=== PATIENT | female | born 1995 | race Caucasian/White ===

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

== ENCOUNTER 2017-04-04 20:33 | Emergency (ER) | payer MEDICAID ==
[2017-04-04 21:26] LABS: BASOPHILS 0.2 % (0-2); EOSINOPHILS 0.8 % (0-7); HEMATOCRIT 40.2 % (36.0-48.0); HEMOGLOBIN 13.3 g/dL (12-16); IMMATURE GRANULOCYTES 0.3 % (0-5); LYMPHOCYTES 25.2 % (15-50); MCH 26.5 pg (26.0-34.0); MCHC 33.1 g/dL (31.0-37.0); MCV 80.2 fL (80.0-100.0); MEAN PLATELET VOLUME 10.5 fL (7.4-10.4); MONOCYTES 5.3 % (2-11); NEUTROPHILS 68.2 % (40-80); PLATELET COUNT 241 10x3/uL (130-400); RBC 5.01 10x6/uL (4.00-5.40); RDW 13.4 % (11.5-14.5); WBC 9.9 10x3/uL (4.8-10.8)
[2017-04-04 21:39] LABS: HCG SERUM NEGATIVE (NEGATIVE)
[2017-04-04 22:04] LABS: APPEARANCE CLEAR (CLEAR); BILIRUBIN NEGATIVE (NEGATIVE); COLOR YELLOW (YELLOW); GLUCOSE NEGATIVE (NEGATIVE); KETONE MODERATE mg/dL (NEGATIVE); NITRITE NEGATIVE (NEGATIVE); PROTEIN NEGATIVE (NEGATIVE); UROBILINOGEN NORMAL (NORMAL)
[2017-04-04 22:05] LABS: EPITHELIAL CELLS 0-5 /hpf (0-5); RED CELLS - URINE 0-5 /hpf (0-5); WHITE CELLS - URINE 0-5 /hpf (0-5)
[2017-04-04 22:06] LABS: BACTERIA FEW /hpf (NONE SEEN)
== END 2017-04-04 22:52 | disposition home or self-care (01) ==
LOC: D.ER 20:33
PROVIDERS: Emergency Medicine; Nurse Practitioner Family
DX: N94.6 Dysmenorrhea, unspecified (principal); R10.2 Pelvic and perineal pain

== ENCOUNTER 2018-07-02 08:14 | Emergency (ER) | payer MEDICAID ==
[~2018-07-02] VITALS: Ht 154.9 cm; Wt 42.3 kg
[2018-07-02 08:18] VITALS: Ht 154.9 cm; Wt 42.3 kg
[2018-07-02 08:46] LABS: BASOPHILS 0.3 % (0-2); EOSINOPHILS 0.8 % (0-7); HEMATOCRIT 41.8 % (36.0-48.0); HEMOGLOBIN 13.9 g/dL (12-16); IMMATURE GRANULOCYTES 0.4 % (0-5); MCH 26.6 pg (26.0-34.0); MCHC 33.3 g/dL (31.0-37.0); MCV 79.9 fL (80.0-100.0); MEAN PLATELET VOLUME 11.3 fL (7.4-10.4); MONOCYTES 6.5 % (2-11); PLATELET COUNT 214 10x3/uL (130-400); RBC 5.23 10x6/uL (4.00-5.40); RDW 12.8 % (11.5-14.5)
[2018-07-02 08:50] LABS: APPEARANCE CLEAR (CLEAR); BILIRUBIN NEGATIVE (NEGATIVE); COLOR YELLOW (YELLOW); GLUCOSE NEGATIVE (NEGATIVE); KETONE LARGE mg/dL (NEGATIVE); NITRITE NEGATIVE (NEGATIVE); PROTEIN NEGATIVE (NEGATIVE); UROBILINOGEN NORMAL (NORMAL)
[2018-07-02] MEDS ORDERED: PHENERGAN25 M1 PO (09:16)
[2018-07-02 09:29] LABS: CALC OSMOLALITY 272 mosm/kg (275-300); CALCIUM 9.3 mg/dL (8.5-10.1); CARBON DIOXIDE 19.6 mmol/L (21.0-32.0); CHLORIDE - SERUM 101 mmol/L (98-107); CREATININE - SERUM 0.6 mg/dL (0.6-1.3); HCG - QUANTITATIVE (MATERNAL) 94753 mIU/mL; POTASSIUM - SERUM 3.1 mmol/L (3.5-5.1); SODIUM 138 mmol/L (136-145); UREA NITROGEN 9 mg/dL (7-18); eGFR NON AFRICAN AMERICAN > 90 mL/min (90-120)
[2018-07-02 09:31] LABS: GLUCOSE 68 mg/dL (74-106)
[2018-07-02 10:06] VITALS: BP 110/58
== END 2018-07-02 10:04 | disposition home or self-care (01) ==
LOC: D.ER 08:14
PROVIDERS: Emergency Medicine
DX: O21.0 Mild hyperemesis gravidarum (principal); Z3A.10 10 weeks gestation of pregnancy

== ENCOUNTER → 2019-01-25 19:50 | Outpatient (CLI) | payer MEDICAID ==
[2018-07-02 08:18] VITALS: BMI 17.6
[~2019-01-25 19:50] MED LIST: PHENERGAN25 M1 PO; PRENAVITE1 TAB PO
[2019-01-25 20:54] LABS: APPEARANCE CLEAR (CLEAR); COLOR YELLOW (YELLOW); NITRITE NEGATIVE (NEGATIVE); PROTEIN NEGATIVE (NEGATIVE)
[2019-01-25 20:55] LABS: BILIRUBIN NEGATIVE (NEGATIVE); GLUCOSE 250 mg/dL (NEGATIVE); KETONE NEGATIVE (NEGATIVE); UROBILINOGEN NORMAL (NORMAL)
[2019-01-25 20:57] LABS: RED CELLS - URINE 0-5 /hpf (0-5); UDS - AMPHET NEGATIVE QUAL (NEGATIVE); UDS - BARB NEGATIVE QUAL (NEGATIVE); UDS - BENZO NEGATIVE QUAL (NEGATIVE); UDS - COCAINE NEGATIVE QUAL (NEGATIVE); UDS - OPIATE NEGATIVE QUAL (NEGATIVE); UDS - PCP NEGATIVE QUAL (NEGATIVE); UDS - THC NEGATIVE QUAL (NEGATIVE)
[2019-01-25 20:58] LABS: BACTERIA FEW /hpf (NEGATIVE); EPITHELIAL CELLS 0-5 /hpf (0-5)
--- NOTE | 2019-01-25 21:18 | NUR ---
DR FOX NOTIFIED AND REVIEWED PT;s BEHAVIOR AND ASSESSMENT RESULTS. PT IS A LOW RSK PER DR FOX. DR FOX STATED TO GIVE RESOURCESTO PT AT TIME OF DISCHARGE . NO FURTHER ORDERS AT THIS TIME. RESOURCES REVIEWED WITH PT AND SHE VERBALIZED UNDERSTANDING.
[2019-02-22 18:40] VITALS: BMI 19.3
== END | disposition home or self-care (01) ==
LOC: D.LDO 19:50
PROVIDERS: ATTEND Obstetrics & Gynecology
DX: O47.9 False labor, unspecified (principal)

== ENCOUNTER 2019-02-09 12:22 | Inpatient (IN) | payer MEDICAID ==
[~2019-02-09] VITALS: Ht 154.9 cm; Wt 52.6 kg
[2019-02-09 12:39] VITALS: BP 122/58; Ht 154.9 cm; Wt 52.6 kg
[2019-02-09 13:00] LABS: APPEARANCE CLEAR (CLEAR); BILIRUBIN NEGATIVE (NEGATIVE); COLOR YELLOW (YELLOW); GLUCOSE NEGATIVE (NEGATIVE); KETONE NEGATIVE (NEGATIVE); NITRITE NEGATIVE (NEGATIVE); PROTEIN NEGATIVE (NEGATIVE); UROBILINOGEN NORMAL (NORMAL)
[2019-02-09 13:11] LABS: UDS - AMPHET NEGATIVE QUAL (NEGATIVE); UDS - BARB NEGATIVE QUAL (NEGATIVE); UDS - BENZO NEGATIVE QUAL (NEGATIVE); UDS - COCAINE NEGATIVE QUAL (NEGATIVE); UDS - OPIATE NEGATIVE QUAL (NEGATIVE); UDS - PCP NEGATIVE QUAL (NEGATIVE); UDS - THC NEGATIVE QUAL (NEGATIVE)
--- NOTE | 2019-02-09 13:13 | NUR ---
DR FOX NOTIFIED AND REVIEWED PATIENT'S BEHAVIOR AND ASSESSMENT RESULTS. PT. IS A LOW RISK PER DR. FOX. DR. FOX STATED TO GIVE RESOURCES TO PT. AT TIME OF DISCHARGE. NO FURTHER ORDERS AT THIS TIME. RESOURCES REVIEWED WITH PT. AND SHE VERBALIZED UNDERSTANDING. PT. VEHEMENTLY DENIES ANY THOUGHTS OF SUICIDE OR SELF-HARM AND CAN STATE MANY REASONS FOR LIVING.
[2019-02-09 15:33] LABS: HEMATOCRIT 32.2 % (36.0-48.0); HEMOGLOBIN 10.1 g/dL (12-16); MCH 25.8 pg (26.0-34.0); MCHC 31.4 g/dL (31.0-37.0); MCV 82.4 fL (80.0-100.0); MEAN PLATELET VOLUME 11.8 fL (7.4-10.4); RBC 3.91 10x6/uL (4.00-5.40); RDW 14.8 % (11.5-14.5); WBC 10.3 10x3/uL (4.8-10.8)
--- NOTE | 2019-02-09 22:17 | NUR ---
BONDING WITH INFANT. FOB AND OLDER SIBLINGS SHOWN TO NEW ROOM. PT DENIES PAIN AND NEEDS AT THIS TIME. INSTRUCTED TO NOTIFY RN WHEN READY FOR V/S CHECK WHEN OLDER SIBLINGS LEAVE AND BEFORE GETTING OOB TO AMBULATE, VERBALIZES UNDERSTANDING. BED IN LOW POSITION WITH SRUP X2. CALL LIGHT AND PHONE WITHIN REACH.
[2019-02-10 00:12] VITALS: BP 118/72
--- NOTE | 2019-02-10 00:12 | NUR ---
BF AT THIS TIME. VSS. SHIFT ASSESSMENT COMPLETED PER FLOWSHEET. ICE WATER PROVIDED. PT ALSO EATING MEAL BROUGHT TO HER BY FAMILY. DENIES NEEDS. REINFORCED CALLING STAFF FOR ASSISTANCE OOB WITH NEXT VOID. VERBALIZES UNDERSTANDING. BED IN LOW POSITION WITH SRUPX2. CALL LIGHT AND PHONE WITHIN REACH. WILL CONTINUE TO MONITOR.
--- NOTE | 2019-02-10 02:38 | NUR ---
AROUSES TO VOICE. REPORTS THAT SHE HAS NOT VOIDED AND DOES NOT FEEL THE URGE TO VOID. EDUCATED ON IMPORTANCE OF VOIDING FREQUENTLY, VERBALIZES UNDERSTANDING. UP TO BR WITH STANDBY ASSIST, STEADY GAIT NOTED. SMALL AMT RUBRA LOCHIA TO PERIPAD, NO CLOTS. VOIDED 1200 MLS CLEAR LIGHT YELLOW URINE IN HAT. INSTRUCTED ON PERICARE USING PERIBOTTLE WITH WARM AND MILD ANTIBACTERIAL SOAP WITH EACH BM/VOID, VERBALIZES AND DEMONSTRATES UNDERSTANDING. FUNDUS FIRM, MIDLINE AND U2, SCANT RUBRA LOCHIA FOLLOWING VOID, NO CLOTS NOTED. BED IN LOW POSITION WITH SRUPX2. CALL LIGHT AND PHONE WITHIN REACH. WILL CONTINUE TO MONITOR. RESTING QUIETLY IN OPEN CRIB AT BEDSIDE. SIGNIFICANT OTHER RESTING ON COUCH AT BEDSIDE.
--- NOTE | 2019-02-10 04:22 | NUR ---
RESTING ON LT SIDE WITH EYES CLOSED. RESP REGULAR AND UNLABORED, NO S/S OF DISTRESS NOTED. SIGNIFICANT OTHER RESTING ON COUCH AT BEDSIDE. INFANT RESTING IN OPEN CRIB AT BEDSIDE. BED IN LOW POSITION WITH SRUPX2. CALL LIGHT AND PHONE WITHIN REACH. WILL CONTINUE TO MONITOR.
[2019-02-10 05:23] LABS: BASOPHILS 0.2 % (0-2); EOSINOPHILS 1.2 % (0-7); HEMATOCRIT 29.5 % (36.0-48.0); HEMOGLOBIN 9.1 g/dL (12-16); IMMATURE GRANULOCYTES 0.5 % (0-5); LYMPHOCYTES 21.1 % (15-50); MCH 25.1 pg (26.0-34.0); MCHC 30.8 g/dL (31.0-37.0); MCV 81.5 fL (80.0-100.0); MEAN PLATELET VOLUME 12.4 fL (7.4-10.4); MONOCYTES 8.3 % (2-11); NEUTROPHILS 68.7 % (40-80); PLATELET COUNT 126 10x3/uL (130-400); RBC 3.62 10x6/uL (4.00-5.40); RDW 14.6 % (11.5-14.5); WBC 9.1 10x3/uL (4.8-10.8)
--- NOTE | 2019-02-10 07:20 | NUR ---
UPON ENTERING ROOM, PT IS RESTING, BEDSIDE SHIFT REPORT DONE, INFORMED THAT I WILL RETURN SHORTLY TO DO ASSESSMENT, NO NEEDS VOICED, BED IN LOW POSIITON, SIDE RAILS X 2, CALL LIGHT IN REACH, INFANT IN OPEN CRIB CART AND FOB AT BEDSIDE
[2019-02-10 08:00] VITALS: BP 116/71
--- NOTE | 2019-02-10 08:00 | NUR ---
PT RESTING WITH EYES CLOSED, AROUSES TO SOFT VERBAL STIMULATION, VS OBTAINED, FF, ML, 1/U AND SLIGHTLY DEVIATED TO THE RIGHT, PT INST TO GET UP TO BR TO VOID, PT UP TO BR, GAIT STEADY, VOIDED LARGE AMOUNT WITH NO DIFFICULTY, PT REPORTS LITE BLEEDING WITH NO CLOTS, USING LENORA CARE INST, GOWN CHANGED, PT BACK TO BED, FF, ML, U/1, PT REPORTS FLATUS, NO BM, PT RATES CRAMPING 2/10, INFORMED PT THAT I WILL CHECK ON PAIN MED, PT DENIES NEED FOR PAIN MED AT THIS TIME, INFANT IN OPEN CRIB CART AT BEDSIDE AND FOB TO [place]
--- NOTE | 2019-02-10 09:25 | NUR ---
PT SITTING UP IN BED HOLDING , DENIES NEEDS OR NEED FOR MOTRIN, BED IN LOW POSITION, SIDE RAILS X 2, CALL LIGHT IN REACH
--- NOTE | 2019-02-10 10:29 | NUR ---
PT RESTING IN BED, HOLDING , DENIES NEEDS OR PAIN AT THIS TIME, FOB ASLEEP ON COUCH
[2019-02-10 11:56] VITALS: BP 107/71
--- NOTE | 2019-02-10 11:56 | NUR ---
PT SITTING UP IN BED, FOB HOLDING INFANT AT THIS TIME, NSY NURSE IN ROOM TALKING TO PT AND FOB, VS OBTAINED, PT C/O CRAMPING, PT REQUESTED AND ADM MOTRIN PER MD ORDERS, SEE EMAR, PT DENIES FURTHER NEEDS
--- NOTE | 2019-02-10 13:10 | NUR ---
SHIFT REPORT TO DAY SHIFT
--- NOTE | 2019-02-10 13:13 | NUR ---
PT RESTING IN BED, LOOKING AT CELL PHONE, DENIES NEEDS OR PAIN, INFANT IN OPEN CRIB CART AT BEDSIDE
--- NOTE | 2019-02-10 13:23 | NUR ---
PT SITTING UP IN BED. CARING FOR INFANT. DENIES C/O OR NEEDS.
--- NOTE | 2019-02-10 15:32 | NUR ---
THIS RN TO ROOM FOR PT CHECK. PT RESTING IN BED ON LEFT SIDE, EYES CLOSED, RESP EVEN AND UNLABORED. PT LEFT UNDISTRURBED FOR REST. SRUx2, CL IN REACH. WILL CONT TO MONITOR.
--- NOTE | 2019-02-10 16:56 | NUR ---
PT SITTING UP IN BED. HOLDS AND OTHER CHILD IN BED WITH PT. PT DENIES C/O PAIN OR NEEDS.
[2019-02-10 19:55] VITALS: BP 114/68
--- NOTE | 2019-02-10 19:55 | NUR ---
RN AT BEDSIDE. SHIFT ASSESSMENT COMPLETED. SEE FLOW SHEET. NO PAIN REPORTED.
--- NOTE | 2019-02-10 20:42 | NUR ---
PT LYING IN BED WITHOUT C/O. BABY IN ROOM.
[2019-02-10 23:45] VITALS: BP 106/78
--- NOTE | 2019-02-10 23:51 | NUR ---
Rounding: PT RESTING IN ROOM. VS TAKEN AND CHARTED. PT C/O ABD CRAMPING AND MOTRIN WAS GIVEN PO. NO OTHER PAIN REPORTED.
--- NOTE | 2019-02-11 01:35 | NUR ---
PT AWAKE AND TALKING TO NURSERY NURSE. PT STATES SHE STILL HAS SOME CRAMPING IN HER STOMACH, BUT IS BETTER. PT STATES SHE IS PLANNING TO SLEEP NOW.
--- NOTE | 2019-02-11 03:35 | NUR ---
pT IS AWAKE TALKING TO NURSERY NURSE. NO C/O AT THIS TIME. NO PAIN.
--- NOTE | 2019-02-11 05:35 | NUR ---
PT APPEARS TO BE SLEEPING AT THIS TIME. BABY IN THE ROOM ALSO SLEEPING. NO C/O AT THIS TIME.
--- NOTE | 2019-02-11 06:30 | NUR ---
DR CONDON CALLED AT THIS TIME AND [facility] RESULTS REPORTED. ORDER REC'D TO [facility] TO POST OP DAY ONE. OTHER AM LABS NOT BACK AT THIS TIME. INSTRUCTED TO CALL WITH RESULTS. Yaa TROTTER RN
[2019-02-11 07:45] VITALS: BP 131/80
[2019-02-11 08:10] LABS: RAPID PLASMA REAGIN Non Reactive (Non Reactive)
--- NOTE | 2019-02-11 08:10 | NUR ---
SITTING UP IN BED HOLDING . ASSESSMENT DONE. VERBAL RESPONSES APPRO TO QUESTIONS. HERNANDEZ AT WILL. UP TO BATHROOM AND ABOUT IN ROOM. FUNDUS UU/FIRM. SCANT LOCHIA NOTED ON PAD.
--- NOTE | 2019-02-11 08:13 | NUR ---
DENIES NEEDS AT THIS TIME.
--- NOTE | 2019-02-11 10:00 | NUR ---
sitting up in bed- denies needs- no requests.
--- NOTE | 2019-02-11 11:06 | NUR ---
DR ABRAMS HERE TO SEE PT- DISCHARGE ORDERS RECEIVED.
--- NOTE | 2019-02-11 12:05 | NUR ---
DISCHARGE INST VERBAL AND WRITTEN GIVEN. NO SCRIPTS GIVEN. SEE INST SIGN SHEET FOR INST GIVEN. PT REFUSES FLU SHOT. PFW DISCHARGE INST GIVEN. AWHONN WARNING SIGNS SHEET GIVE. PT HEALTH SUMMARY GIVEN. PT DENIES QUESTIONS.
--- NOTE | 2019-02-11 15:30 | NUR ---
PT D/C'ED TO AUTO IN WHEELCHAIR W/ . PT IN STABLE CONDITION.
== END 2019-02-11 15:30 | disposition home or self-care (01) | DRG 807 ==
LOC: D.LDO 12:22 → D.LD 15:08
PROVIDERS: ADMIT Student in an Organized Health Care Education/Training Program; ATTEND Student in an Organized Health Care Education/Training Program
PROC: 10E0XZZ Delivery of Products of Conception, External Approach (ICD-10-PCS; principal; 2019-02-09)
PROC: 0UQMXZZ Repair Vulva, External Approach (ICD-10-PCS; 2019-02-09)
DX: O70.0 First degree perineal laceration during delivery (principal); Z37.0 Single live birth; Z3A.38 38 weeks gestation of pregnancy

== ENCOUNTER 2019-02-22 18:20 | Emergency (ER) | payer MEDICAID ==
[~2019-02-22] VITALS: Ht 154.9 cm; Wt 46.4 kg
[2019-02-22 18:40] VITALS: Ht 154.9 cm; Wt 46.4 kg
[2019-02-22 19:03] LABS: BASOPHILS 0.2 % (0-2); EOSINOPHILS 2.3 % (0-7); HEMATOCRIT 40.4 % (36.0-48.0); HEMOGLOBIN 12.6 g/dL (12-16); IMMATURE GRANULOCYTES 0.4 % (0-5); LYMPHOCYTES 25.5 % (15-50); MCH 25.7 pg (26.0-34.0); MCHC 31.2 g/dL (31.0-37.0); MCV 82.4 fL (80.0-100.0); MEAN PLATELET VOLUME 10.7 fL (7.4-10.4); MONOCYTES 6.7 % (2-11); NEUTROPHILS 64.9 % (40-80); RDW 15.2 % (11.5-14.5); WBC 9.2 10x3/uL (4.8-10.8)
[2019-02-22 19:04] LABS: APPEARANCE CLEAR (CLEAR); BILIRUBIN NEGATIVE (NEGATIVE); COLOR STRAW (YELLOW); GLUCOSE NEGATIVE (NEGATIVE); KETONE NEGATIVE (NEGATIVE); NITRITE NEGATIVE (NEGATIVE); PLATELET COUNT 205 10x3/uL (130-400); PROTEIN NEGATIVE (NEGATIVE); UROBILINOGEN NORMAL (NORMAL)
[2019-02-22 19:08] LABS: RED CELLS - URINE 0-5 /hpf (0-5); WHITE CELLS - URINE NSEEN /hpf (NEGATIVE)
[2019-02-22 19:09] LABS: BACTERIA FEW /hpf (NEGATIVE); EPITHELIAL CELLS NSEEN /hpf (0-5)
[2019-02-22 19:13] LABS: CALC OSMOLALITY 278 mosm/kg (275-300); CALCIUM 8.8 mg/dL (8.5-10.1); CARBON DIOXIDE 25.9 mmol/L (21.0-32.0); CHLORIDE - SERUM 104 mmol/L (98-107); CREATININE - SERUM 0.7 mg/dL (0.6-1.3); GLUCOSE 84 mg/dL (74-106); POTASSIUM - SERUM 3.6 mmol/L (3.5-5.1); SODIUM 140 mmol/L (136-145); UREA NITROGEN 15 mg/dL (7-18); eGFR NON AFRICAN AMERICAN > 90 mL/min (90-120)
[2019-02-22 19:19] LABS: ALBUMIN 3.9 g/dL (3.4-5.0); ALKALINE PHOSPHATASE 214 U/L (46-116); ALT (SGPT) 19 U/L (10-68); AMYLASE - SERUM 64 U/L (25-115); LIPASE 180 U/L (73-393); PROTEIN - SERUM 8.2 g/dL (6.4-8.2)
[2019-02-22 20:40] VITALS: BP 125/80
== END 2019-02-22 20:40 | disposition left against medical advice (07) ==
LOC: D.ER 18:20
PROVIDERS: Family Medicine
DX: O90.89 Other complications of the puerperium, not elsewhere classified (principal); R10.30 Lower abdominal pain, unspecified; J45.909 Unspecified asthma, uncomplicated

== ENCOUNTER 2019-07-29 20:54 | Observation (INO) | payer MEDICAID ==
[~2019-07-29] VITALS: Ht 154.9 cm; Wt 44.9 kg
[2019-07-29] MEDS ORDERED: PHENERGAN25 M1 PO (21:14)
[2019-07-29 21:35] LABS: BILIRUBIN NEGATIVE (NEGATIVE); GLUCOSE NEGATIVE (NEGATIVE); KETONE LARGE mg/dL (NEGATIVE); NITRITE NEGATIVE (NEGATIVE); SPECIFIC GRAVITY 1.025 (1.005-1.020); UROBILINOGEN NORMAL (NORMAL)
[2019-07-29 21:36] LABS: HCG URINE POSITIVE (NEGATIVE)
[2019-07-29 21:45] LABS: BASOPHILS 0.1 % (0-2); EOSINOPHILS 0.3 % (0-7); HEMATOCRIT 46.1 % (36.0-48.0); HEMOGLOBIN 15.2 g/dL (12-16); IMMATURE GRANULOCYTES 0.3 % (0-5); LYMPHOCYTES 13.9 % (15-50); MCH 26.3 pg (26.0-34.0); MCV 79.6 fL (80.0-100.0); MONOCYTES 5.4 % (2-11); RBC 5.79 10x6/uL (4.00-5.40); RDW 13.1 % (11.5-14.5); WBC 14.5 10x3/uL (4.8-10.8)
[2019-07-29 21:46] LABS: PLATELET COUNT 314 10x3/uL (130-400)
[2019-07-29 22:01] LABS: CALC OSMOLALITY 278 mosm/kg (275-300); CALCIUM 9.7 mg/dL (8.5-10.1); CARBON DIOXIDE 24.3 mmol/L (21.0-32.0); CHLORIDE - SERUM 99 mmol/L (98-107); CREATININE - SERUM 0.9 mg/dL (0.6-1.3); GLUCOSE 95 mg/dL (74-106); SODIUM 139 mmol/L (136-145); UREA NITROGEN 14 mg/dL (7-18); eGFR NON AFRICAN AMERICAN 83 mL/min (90-120)
[2019-07-29 22:02] LABS: HCG SERUM POSITIVE (NEGATIVE)
--- NOTE | 2019-07-29 22:18 | NUR ---
PT GIVEN WATER AND INFORMED TO FILL BLADDER FOR ULTRASOUND.
[2019-07-29 22:30] LABS: ALKALINE PHOSPHATASE 82 U/L (30-120); ALT (SGPT) 16 U/L (10-68); AMYLASE - SERUM 86 U/L (25-115); BILIRUBIN - TOTAL 0.54 mg/dL (0.2-1.3); HCG - QUANTITATIVE (MATERNAL) 48975 mIU/mL; LIPASE 118 U/L (73-393)
--- NOTE | 2019-07-29 22:43 | NUR ---
DR FOX NOTIFIED OF PT's BEHAVIOR AND ASSESSMENT RESULTS. PT IS A LOW RISK PER DR FOX. DR FOX STATED TO GIVE RESOURCES TO PT AT TIME OF DISCHARGE. NO FURTHER ORDERS AT THIS TIME. RESOURCES REVIEWED WITH PT AND SHE VERBALIZED UNDERSTANDING.
[2019-07-30 00:43] VITALS: BP 108/65
--- NOTE | 2019-07-30 06:35 | NUR ---
reglan administered per md orders, see emar.
[2019-07-30 07:46] VITALS: BP 102/60
--- NOTE | 2019-07-30 08:03 | NUR ---
asleep when entered room. awakens when name called. denies nausea at this time. denies needs.
--- NOTE | 2019-07-30 08:10 | NUR ---
BANANA BAG COMPLETE. D51/2 NS HUNG AND INFUSING PER PUMP AT 999CC/HR.
--- NOTE | 2019-07-30 09:41 | NUR ---
CONT DROWSY- BUT RESPONDS TO QUESTIONS. DENIES NAUSEA AT THIS TIME.
--- NOTE | 2019-07-30 10:52 | NUR ---
update to dr patino- new orders received. may have liquids and bland diet.
[2019-07-30 10:58] VITALS: BP 99/58
--- NOTE | 2019-07-30 10:59 | NUR ---
SPRITE GIVEN. STATES NEEDS TO VOID. AMBULATORY TO BATHROOM. VOIDED 450CC URINE- SL CLOUDY.
--- NOTE | 2019-07-30 13:00 | NUR ---
ate few bites of potatos, roll. drank sips of sprite. states will eat more later but that her stomach started to hurt. states would like water instead of sprite.
--- NOTE | 2019-07-30 13:15 | NUR ---
dr patino calls unit- report given. states that he will call back in a bit.
--- NOTE | 2019-07-30 13:20 | NUR ---
CALLED TO ROOM, PT ASKING IF SHE WAS TO BE DISCHARGED TODAY. STATES SHE FEELS BETTER AND WOULD LIKE TO GO HOME. DR DRAKE NOTIFIED AND STATES HE WILL BE OVER TO SEE PATIENT AROUND 1400.
--- NOTE | 2019-07-30 13:23 | NUR ---
report to silvia ray rn.
[2019-07-30 13:40] VITALS: Ht 154.9 cm; Wt 44.9 kg
--- NOTE | 2019-07-30 13:50 | NUR ---
DR DRAKE AT BEDSIDE TALKING WITH PT ABOUT PLAN OF CARE.
--- NOTE | 2019-07-30 14:27 | NUR ---
IV DISCONTINUED AND REMOVED WITH CATH INTACT. PT DENIES NAUSEA AT THIS TIME. STATES UNDERSTANDING THAT DR DRAKE WAS ESCRIPE PT SCRIPTS TO HER PHARMACY. SHE WILL NOTIFY WITH HER RIDE IS HERE.
[2019-07-30] MEDS ORDERED: FAMOTIDINE10 MG PO (15:02)
[2019-07-30] MEDS ORDERED: REGLAN10 MG PO (15:04)
[2019-07-30] MEDS ORDERED: ZOFRAN ODT4 MG/UDTAB PO (15:05)
--- NOTE | 2019-07-30 15:15 | NUR ---
pt calls out that her ride will be here at 1530.
--- NOTE | 2019-07-30 15:30 | NUR ---
VERBAL AND WRITTEN D/C INSTRUCTIONS GONE OVER. PT STATES UNDERSTANDING THAT SCRIPTS WERE SENT TO HER PHARMACY. ALSO THAT SHE NEEDS TO MAKE NOB APPOINTMENT AT [facility], AND THAT MUST BE DONE IN PERSON. DENIES QUESTIONS OR CONCERNS AT THIS TIME. TAKEN OUT BY WHEELCHAIR, HOME BY PERSONNEL CAR WITH FAMILY.
== END 2019-07-30 15:30 | disposition home or self-care (01) ==
LOC: D.ER 20:54 → OBSVTIME 22:28 → D.LD 22:28
PROVIDERS: Family Medicine; ADMIT Obstetrics & Gynecology; ATTEND Obstetrics & Gynecology
DX: O21.0 Mild hyperemesis gravidarum (principal); Z3A.10 10 weeks gestation of pregnancy